=== PATIENT | male | born 1960 | race Caucasian/White ===

== ENCOUNTER 2018-02-03 21:20 | Emergency (ER) | payer MEDICAID ==
[~2018-02-03] VITALS: Ht 185.4 cm; Wt 93.0 kg
[2018-02-03] MEDS ORDERED: ONDANSETRON HCL 4 MG/2 ML VIAL ONE (21:53)
[2018-02-03] MEDS ORDERED: IOHEXOL 300 MG/ML 100ML BOTTLE IJ ONE (21:56)
[2018-02-03] MEDS ORDERED: GASTROGRAFIN 30 ML SOL ONE (21:56)
[2018-02-03] MEDS ORDERED: ONDANSETRON HCL 4 MG/2 ML VIAL IV ONE (22:00)
[2018-02-03 22:03] LABS: Basophils # (auto) 0 uL; Basophils % (auto) 0.3 % (0.0-2.0); Eosinophils # (auto) 0 uL; Hematocrit 46.9 % (41.0-53.0); Hemoglobin 16.2 g/dL (13.5-17.5); Lymphocytes # (auto) 0.9 uL; Lymphocytes % (auto) 8.4 % (10.0-50.0); Mean Corpuscular Hemoglobin 31.5 pg (28.0-32.0); Mean Corpuscular Hgb Conc. 34.5 g/dL (32.0-36.0); Mean Corpuscular Volume 91.5 fL (80.0-100.0); Monocytes # (auto) 0.5 uL; Monocytes % (auto) 5.3 % (0.0-12.0); Neutrophils # (auto) 8.9 uL; Platelet Count (auto) 264 10^3/uL (140-450); Red Blood Cells 5.13 10^6/uL (4.5-5.90); Red Cell Distribution Width 13.6 % (11.8-14.3); White Blood Cell 10.4 10^3/uL (4.4-10.8)
[2018-02-03 22:24] LABS: Calcium 9.9 mg/dL (8.5-10.1); Potassium 3.8 mmol/L (3.5-5.1)
[2018-02-03 22:32] LABS: BUN/Creatinine Ratio 16.1; Bilirubin, Total 0.7 mg/dL (0.2-1.0); Total Protein 7.7 g/dL (6.4-8.2)
[2018-02-03] MEDS ORDERED: OCTREOTIDE ACETATE 500 MCG in SODIUM CHL 0.9% 99 ML IV SCH (23:15)
[2018-02-03] MEDS ORDERED: OCTREOTIDE ACETATE 100 MCG in SODIUM CHL 0.9% 50 ML IV ONE (23:15)
[2018-02-03] MEDS ORDERED: OCTREOTIDE ACETATE 500 MCG/ML VL ONE (23:31)
[2018-02-03] MEDS ORDERED: OCTREOTIDE ACETATE 100 MCG/ML VL ONE (23:31)
[2018-02-04] MEDS ORDERED: PROMETHAZINE HCL 25 MG/ML 1ML IV ONE (00:15)
[2018-02-04 01:54] VITALS: BP 115/71
== END 2018-02-04 05:03 | disposition home or self-care (01) ==
LOC: EDBD 21:20 → ER 21:20
DX: K57.90 Diverticulosis of intestine, part unspecified, without perforation or abscess without bleeding (principal); K76.0 Fatty (change of) liver, not elsewhere classified; F17.210 Nicotine dependence, cigarettes, uncomplicated
CPT/HCPCS: 36415; 74177; 80053; 82150; 83690; 85025; 93005; 96365; 96366; 96375; 99285; J2405; J2550; Q9963; Q9967